=== PATIENT | male | born 1980 | race Two or more races ===

== ENCOUNTER 2021-03-22 21:59 | Emergency (ER) | payer SELFPAY ==
[~2021-03-22] VITALS: Ht 165.1 cm; Wt 72.0 kg
--- NOTE | 2021-03-23 00:42 | PHYS DOC ---
General Adult EDM: Chief Complaint: MULTIPLE COMPLAINTS HPI: HPI: Patient is a 40 year [id number] male presents with a chief complaint of cough loss of taste and smell fever and muscle aches x3 days. Oxygen saturation 96% on room air with a temperature of 100.6 Patient is unvaccinated--states he does not want to get the vaccine due to concern of side effects. Review of Systems: Review of Systems: Constitutional: Positive fever Eyes: Denies change in visual acuity. [] HENT: Denies nasal congestion or sore throat. [] Respiratory: Positive cough no shortness of breath. [] Cardiovascular: Denies chest pain or edema. [] GI: Denies abdominal pain, Positive nausea, no vomiting, bloody stools or diarrhea. [] : Denies dysuria. [] Musculoskeletal: Denies back pain or joint pain. [Positive myalgia] Integument: Denies rash. [] Neurologic: Positive headache Denies , focal weakness or sensory changes. [] Endocrine: Denies polyuria or polydipsia. [] Lymphatic: Denies swollen glands. [] Psychiatric: Denies depression or anxiety. [] Heart Score: C/O Chest Pain: N/A Risk Factors: Risk Factors: DM, Current or recent (<one month) smoker, HTN, HLP, family history of CAD, obesity. Risk Scores: Score 0 - 3: 2.5% MACE over next 6 weeks - Discharge Home Score 4 - 6: 20.3% MACE over next 6 weeks - Admit for Clinical Observation Score 7 - 10: 72.7% MACE over next 6 weeks - Early Invasive Strategies Allergies: Allergies: Allergies Coded Allergies Type Severity Reaction Last Updated Verified No Known Drug Allergies 03/23/21 No Physical Exam: PE: General: alert, no acute distress. Skin: warm, dry and intact. HENT: bilateral external ears normal, oropharynx moist, nose normal. Head:: Normocephalic, atraumatic. Neck: Trachea midline. Eyes: EOMI, Normal conjunctiva, No drainage CARDIOVASCULAR: Regular rate and rhythm RESPIRATORY: No respiratory distress Back: Full range of motion. Skin: Warm, dry, no erythema, no rash. MUSCULOSKELETAL: Full range of motion of bilateral upper and lower extremities. GASTROINTESTINAL: Abdomen soft without rebound or guarding. NEUROLOGICAL: Alert and noted to person, place and time. No neurological deficits observed Psychiatric: Cooperative. Normal judgment Current Patient Data: Vital Signs: Vital Signs Date Time Temp Pulse Resp B/P (MAP) Pulse Ox O2 Delivery O2 Flow Rate FiO2 03/22/21 23:56 100.6 100 22 122/81 (95) 96 Room Air 100.6 EKG: EKG: [] Radiology/Procedures: Radiology/Procedures: [] Course & Med Decision Making: Course & Med Decision Making Pertinent Labs and Imaging studies reviewed. (See chart for details) [] Covid swab obtained. Patient was treated with Decadron and Tylenol. Patient discharged home with instructions to take Tylenol and ibuprofen as needed for pain or fever. Patient instructed to increase p.o. intake. Dragon Disclaimer: Dragon Disclaimer: This electronic medical record was generated, in whole or in part, using a voice recognition dictation system. Departure Departure Impression: Primary Impression: Person under investigation for COVID-19 Disposition: HOME / SELF CARE / HOMELESS Condition: STABLE Referrals: TATE TERRAZAS MD (PCP) Patient Instructions: Viral Infections Additional Instructions: Definicin Se le realiz la prueba de deteccin del COVID-19 o se le diagnostic dicha enfermedad. Es coy infeccin ocasionada por un nuevo tipo de coronavirus. En la mayora de los casos, el COVID-19 provoca sntomas similares a los del resfriado. En algunas personas, puede ocasionar sntomas ms graves, gisselle problemas respiratorios. No existe un tratamiento para el virus COVID-19. El cuerpo elimina la infeccin con el tiempo. El cuidado personal ayuda a aliviar el malestar. Pasos que debe seguir 1. Cuidados personales Descanse cuando sea necesario. Los hbitos saludables pueden ayudarlo a sentirse mejor. Algunas medidas para lograr cambios incluyen lo siguiente: - Elija alimentos saludables, gisselle frutas y verduras. Paloma abundante cantidad de agua vikas todo el da. - Duerma jordan por la noche. - Si fuma, intente no hacerlo. [place] ayudar a mejorar la respiracin. - Evite el alcohol. 2. Mantenga sanos a los dems El virus puede contagiarse a otras personas. Cada vez que estornuda o tose, se liberan gotitas. Las gotitas pueden entrar en la boca, la nariz o los ojos de las personas que se encuentran cerca de usted y ocasionar la infeccin. Para reducir las probabilidades de contagiar el virus COVID-19 a otros, tenga en cuenta lo siguiente: - Qudese en casa el tiempo que el mdico se lo indique. Es posible que deba quedarse en casa hasta que la enfermedad desaparezca. Salga nicamente para recibir atencin mdica o en gustavo de urgencia. - Evite las reas pblicas, los eventos o el transporte pblico. No reanude las actividades laborales o escolares hasta que el mdico lo autorice. - Llame previamente si necesita asistir a un centro mdico. Avise que es posible que haya contrado COVID-19. [place] ayudar a que le indiquen adonde debe dirigirse. Pratik pueden pedirle que use coy mscara facial cuando vaya al consultorio. Si llama a los servicios de asistencia mdica de urgencias, avseles que es posible que haya contrado COVID-19. Mientras est en casa: - Evite el contacto directo con otras personas. Mantngase a coy distancia aproximada de 2 metros. Si es posible, pasen la mayor parte del tiempo en bruno separadas. - Use coy mscara facial si estar en contacto directo con otras personas, por ejemplo, si compartir coy habitacin o un vehculo. - Pida a alguien que limpie las superficies comunes de la casa. Limpie picaportes, mesadas y lavamanos con limpiadores domsticos todos los leyva. - Al toser o estornudar, cbrase con un pauelo de papel. Despus de usarlo, deschelo de inmediato. Si no tiene un pauelo de papel, tosa o estornude en el pliegue del codo. - Lvese las ashely con frecuencia. Lvese las ashely despus de estornudar o toser. Lvese con agua y jabn vikas, al menos, 20 segundos. Si no dispone de agua y jabn, use un limpiador de ashely a base de alcohol. - No cocine para otros. Evite compartir objetos personales, gisselle tenedores, cucharas o cepillos de dientes. - Mientras est enfermo, evite el contacto directo con las mascotas. No hay indicios de si el virus se transmite a las mascotas. Esta es coy medida de seguridad que debe tenerse en cuenta hasta que se sepa ms acerca de deepa virus. El aislamiento puede ser frustrante. La interaccin social puede ayudar. Mantngase en contacto con amigos y familiares por telfono u otros medios tecnolgicos. Puede interactuar con otras personas en el hogar, martin mantenga coy distancia mccray de aproximadamente 2 metros. Seguimiento Las pruebas para confirmar la presencia del COVID-19 pueden demorar algunos leyva. Es posible que deba seguir los pasos mencionados anteriormente hasta que estn los resultados de las pruebas. Lo llamarn del consultorio mdico para saber si hernandez habido algn cambio en polo [place]. Tambin le avisarn cuando pueda volver a estar cerca de otras personas. Problemas a los que debe estar atento Comunquese con el mdico si no se recupera segn lo previsto o si tiene problemas gisselle los siguientes: - Dificultad para respirar - Dolor de pecho - Empeoramiento de los sntomas Si waqas que tiene coy urgencia, llame a los servicios de asistencia mdica de urgencias de inmediato. As taken from [facility] [place] RHEA Small DO Mar 23, 2021 00:42
[2021-03-23] MEDS ORDERED: ACETAMINOPHEN 325 MG TABLET. PO ONE (00:45)
[2021-03-23] MEDS ORDERED: DEXAMETHASONE 4 MG TABLET PO ONE (00:45)
[2021-03-23 00:46] VITALS: BP 132/82
--- NOTE | 2021-03-23 17:40 | NUR ---
IP: Attempted to contact pt concerning covid results. No answer, left a voicemail to return the call.
--- NOTE | 2021-03-23 18:04 | NUR ---
IP: Informed pt and pt's mother of positive covid results and the need to quarantine for 10 days. Both verbalized understanding.
== END 2021-03-23 00:59 | disposition home or self-care (01) ==
LOC: ER 21:59
DX: U07.1 COVID-19 (principal)
CPT/HCPCS: 99283; U0003; U0005